=== PATIENT | female | born 1965 | race Caucasian/White ===

== ENCOUNTER 2022-05-26 19:23 | Emergency (ER) | payer BC, SELFPAY ==
[2022-05-26 19:40] VITALS: BP 131/88; PULSE 106; RESP 18; TEMP 36.2; O2SAT 98
--- NOTE | 2022-05-26 19:55 | ED.URI ---
HPI - URI/Sore Throat General Chief Complaint: Upper Respiratory Infection Stated Complaint: Cough,Congestion Time Seen by Provider: 05/26/22 19:24 Source: patient and family ( ) Mode of arrival: ambulatory Limitations: no limitations History of Present Illness HPI Narrative: 57-year-old female presents to [facility] with complaints of productive cough, postnasal drip and runny nose for the past 10 days. Patient takes Maite daily. Patient also has been taking [id number] Mucinex, Delsym and using the Neti pot with minimal relief. Patient is nonsmoker. Patient denies sick contacts. Patient reports that they recently moved to the area and does not have a current PCP. Patient denies shortness of breath, wheezing, fever, body aches, chills, nausea, vomiting or diarrhea MD elicited complaint: cough and rhinorrhea Onset (ago): day(s) (10) Severity: mild Able to tolerate fluids by mouth: Yes Treatments prior to arrival: cold medicine Related Data Home Medications Medication Instructions Recorded Confirmed docusate sodium 50 mg capsule 50 mg PO DAILY 05/26/22 05/26/22 gabapentin 300 mg capsule 300 mg PO BID 05/26/22 05/26/22 guaifenesin 600 mg tablet, 600 mg PO DAILY 05/26/22 05/26/22 extended release 12 hr (Mucinex) milnacipran 12.5 mg tablet 12.5 mg PO DAILY 05/26/22 05/26/22 (Savella) Allergies Allergy/AdvReac Type Severity Reaction Status Date / Time azithromycin Allergy Unknown Verified 05/26/22 19:47 Penicillins Allergy Unknown Verified 05/26/22 19:47 Chocolate Allergy Mild HIVES Uncoded 05/26/22 19:34 Review of Systems Constitutional: Constitutional: Denies chills, Denies fatigue, Denies fever(s) and Denies weakness ENT: Denies dizziness and Denies epistaxis Comments: Runny nose, postnasal drip Cardiovascular: Cardiovascular: Denies chest pain Respiratory: Respiratory: Reports cough, Denies dyspnea and Denies wheezing Gastrointestinal: Gastrointestinal: Denies abdominal pain, Denies diarrhea, Denies nausea and Denies vomiting Integumentary/Breasts: Skin/Breast: Denies rash Neurologic: Denies vertigo, Denies dizziness and Denies syncope [facility] Past Medical History Medical History (Updated 05/26/22 @ 20:00 by Emmanuelle Luis APRN) Fibromyalgia Comments At time of signature, I agree with nursing past medical, surgical, social and family history. There is no relevant family history pertinent to the presenting complaint. Exam Const: General: healthy appearing Nutritional Appearance: well nourished Orientation/consciousness: patient oriented x3 Limitations: no limitations HENMT: Head: normal to inspection Ears: external ears normal and TM's normal bilaterally Face/Nose/Sinus: Normal external nose present Mouth: Yes lip normal and Yes moist mucous membranes Teeth and gingiva: dentition normal Throat: uvula midline Other: Mild erythema noted to posterior pharynx, mild nasal congestion noted. There is no active nasal discharge noted Eyes: Conjunctivae: conjunctivae normal Neck: Neck: normal visual inspection Chest: Chest palpation & inspection: normal inspection of the chest Resp: Effort & Inspection: normal respiratory effort, not labored and no retractions Auscultation: clear to auscultation bilaterally, no crackles, no rales, no rhonchi and no wheezes Cardio: Rate: regular rate Rhythm: regular rhythm Heart sounds: no murmurs Skin: General skin exam: normal color Rashes: no rashes Wounds: no wounds Neuro: General: patient oriented x3 Speech: normal speech Gait exam (Neuro): Normal gait present Psych: Mental Status: mental status grossly normal Affect: normal affect Attitude: cooperative Course Course Level of Care: Express Care Visit Vital Signs Vital signs: Vital Signs Temperature 36.2 C L 05/26/22 19:40 Pulse Rate 106 H 05/26/22 19:40 Respiratory Rate 18 05/26/22 19:40 Blood Pressure 131/88 05/26/22 19:40 Pulse Oximetry 98 05/08
== END 2022-05-26 20:03 | disposition home or self-care (01) ==
PROVIDERS: Emergency Provider Nurse Practitioner Family
DX: J06.9 Acute upper respiratory infection, unspecified (principal); M79.7 Fibromyalgia
CPT/HCPCS: 99213; G0463

== ENCOUNTER 2024-02-29 10:18 | Emergency (ER) | payer BC, SELFPAY ==
[2024-02-29 10:44] VITALS: BP 111/73; PULSE 91; RESP 18; TEMP 36.6; O2SAT 100
--- NOTE | 2024-02-29 11:25 | ED.URI ---
HPI - URI/Sore Throat General Chief Complaint: Upper Respiratory Infection Stated Complaint: ?sinus infection Source: patient and family Mode of arrival: ambulatory Limitations: no limitations History of Present Illness HPI Narrative: 5-year-old female presents to [facility] with complaints of sinus pressure, headache and right ear pain for the past 2 days. Patient reports that she has been using nasal rinses, taking Maite, Mucinex and Flonase with minimal relief. Patient denies sick contacts. Patient denies recent travel. Patient denies fever, body aches, chills, nausea vomiting or diarrhea. Patient reports that she completed a 5 day course of clindamycin per her dentist as she had a tooth pulled and has since started with vaginal itching and is asking for a prescription to treat a yeast infection as she has a history of yeast infection after antibiotic use. MD elicited complaint: rhinorrhea, nasal congestion and sinus pain Onset (ago): day(s) (2) Exacerbating factors: nothing Relieving factors: nothing Treatments prior to arrival: cold medicine Related Data Home Medications Medication Instructions Recorded Confirmed gabapentin 300 mg capsule 300 mg PO BID 05/26/22 02/29/24 guaifenesin 600 mg tablet, 600 mg PO DAILY 05/26/22 02/29/24 extended release 12 hr (Mucinex) milnacipran 12.5 mg tablet 12.5 mg PO DAILY 05/26/22 02/29/24 (Savella) cholecalciferol (vitamin D3) 25 25 mcg PO DAILY 02/29/24 02/29/24 mcg (1,000 unit) tablet (Vitamin D3) fezolinetant 45 mg tablet (Veozah) 45 mg PO DAILY 02/29/24 02/29/24 Allergies Allergy/AdvReac Type Severity Reaction Status Date / Time azithromycin AdvReac Mild Hives Verified 02/29/24 10:45 Penicillins AdvReac Mild Hives Verified 02/29/24 10:45 Chocolate AdvReac Mild HIVES Uncoded 02/29/24 10:45 Review of Systems Constitutional: Constitutional: Denies chills, Denies fatigue, Denies fever(s) and Denies weakness ENT: Denies vertigo, Denies dizziness, Denies epistaxis, Reports nasal congestion and Denies sore throat Comments: Right ear pain Respiratory: Respiratory: Denies cough, Denies dyspnea and Denies wheezing Gastrointestinal: Gastrointestinal: Denies diarrhea, Denies nausea and Denies vomiting Genitourinary: Genitourinary: Denies abnormal vaginal bleeding, Denies hematuria, Denies nocturia, Denies genital lesions and Denies dysuria Comments: Vaginal itching Integumentary/Breasts: Skin/Breast: Denies erythema and Denies rash Neurologic: Denies syncope and Denies headache(s) PMFSH Past Medical History Medical History Fibromyalgia Comments At time of signature, I agree with nursing past medical, surgical, social and family history. There is no relevant family history pertinent to the presenting complaint. Exam Const: General: healthy appearing and no acute distress Nutritional Appearance: well nourished Orientation/consciousness: patient oriented x3 Limitations: no limitations HENMT: Head: normal to inspection Ears: external ears normal, EAC's normal and TM abnormal wth effusion serous on the right and erythematous on the right Face and sinus: sinus tenderness frontal Mouth: Yes lip normal and Yes moist mucous membranes Throat: posterior oropharynx normal and uvula midline Other: Moderate nasal congestion noted Eyes: Conjunctivae: conjunctivae normal Neck: Neck: normal visual inspection Resp: Effort & Inspection: normal respiratory effort and not labored Auscultation: clear to auscultation bilaterally, no crackles, no rales, no rhonchi and no wheezes Cardio: Rate: regular rate Rhythm: regular rhythm Heart sounds: no murmurs : Other: Vaginal exam deferred Skin: General skin exam: normal color Rashes: no rashes Wounds: no wounds Neuro: General: patient oriented x3 Speech: normal speech Gait exam (Neuro): Normal gait present Extrem: General: normal
== END 2024-02-29 11:34 | disposition home or self-care (01) ==
PROVIDERS: Emergency Provider Nurse Practitioner Family
DX: H66.92 Otitis media, unspecified, left ear (principal); J01.10 Acute frontal sinusitis, unspecified; M79.7 Fibromyalgia
CPT/HCPCS: 99213; G0463

== ENCOUNTER 2024-05-04 17:49 | Emergency (ER) | payer BC, SELFPAY ==
[2024-05-04 18:00] VITALS: BP 135/81; PULSE 93; RESP 16; TEMP 36.4; O2SAT 100
--- NOTE | 2024-05-04 18:03 | ED_ITS ---
HPI - Ear Problem General Chief complaint: Ear Stated complaint: ear infection Time Seen by Provider: 05/04/24 18:06 Source: patient and RN notes reviewed Mode of arrival: ambulatory Limitations: no limitations History of Present Illness HPI Narrative: 59-year-old female presents concern for ear infection. She reports 1 week history of right-sided ear pain, nasal drainage, right throat pain. She reports some recent body aches. She had an ear infection the right ear 2 months ago. MD Complaint: ear pain Related Data Home Medications Medication Instructions Recorded Confirmed gabapentin 300 mg capsule 300 mg PO BID 05/26/22 05/04/24 guaifenesin 600 mg tablet, 600 mg PO DAILY 05/26/22 05/04/24 extended release 12 hr (Mucinex) milnacipran 12.5 mg tablet 12.5 mg PO DAILY 05/26/22 05/04/24 (Savella) cholecalciferol (vitamin D3) 25 25 mcg PO DAILY 02/29/24 05/04/24 mcg (1,000 unit) tablet (Vitamin D3) fezolinetant 45 mg tablet (Veozah) 45 mg PO DAILY 02/29/24 05/04/24 Lactobacillus 1 cap PO DAILY 05/04/24 05/04/24 acidophilus-Bifidobac.animalis 2.5 billion cell capsule (Daily Probiotic) cholecalciferol (vitamin D3) 25 25 mcg PO DAILY 05/04/24 05/04/24 mcg (1,000 unit) capsule docusate sodium 50 mg capsule 50 mg PO DAILY 05/04/24 05/04/24 fexofenadine 60 mg tablet (Maite 60 mg PO Q12H 05/04/24 05/04/24 Allergy) Allergies Allergy/AdvReac Type Severity Reaction Status Date / Time azithromycin AdvReac Mild Hives Verified 05/04/24 18:17 Penicillins AdvReac Mild Hives Verified 05/04/24 18:17 Chocolate AdvReac Mild HIVES Uncoded 05/04/24 18:17 Review of Systems Review of Systems: CONSTITUTIONAL: Denies malaise, chills, sweats, or fever. EYES: Denies visual changes, redness, or discharge. ENT: Reports rhinorrhea, and right-sided sore throat. Reports right ear pain CARDIOVASCULAR: Denies chest pain, palpitations, or edema. RESPIRATORY: Denies cough. Denies dyspnea. GASTROINTESTINAL: Denies abdominal pain, nausea, vomiting, diarrhea SKIN: Denies rash or itching. MUSCULOSKELETAL: Reports myalgia. NEUROLOGIC: Denies headache. All systems reviewed & are unremarkable except as noted in HPI and below PMFSH Past Medical History Medical History Fibromyalgia Comments At time of signature, agree with nursing past medical, surgical, social and family history. There is no relevant family history pertinent to the presenting complaint Exam Narrative: GENERAL: Well-appearing, well-nourished, and in no acute distress. HEAD: Normocephalic EYES: PERRLA, conjunctivae clear ENT: Nares clear. Mucous membranes moist. TM pearly drake with sharp light reflex bilaterally; no tragal tenderness. Oropharynx not erythematous without lesions. Tonsils not enlarged and without exudate, no drooling, no hoarseness, no trismus, uvula midline. NECK: Supple. No lymphadenopathy CHEST: Clear to auscultation, breath sounds equal. No wheezing, rhonchi, rales, or stridor. No respiratory distress, speaks in full sentences. HEART: Regular rate and rhythm. No murmur heard. SKIN: Warm, dry, no rash. NEURO: Alert and oriented x3. PSYCH: Normal mood and affect Course Course Emergency Course: Patient is aware of diagnosis, understands and agrees to treatment plan. Anticipatory guidance given. Patient agrees to follow-up as directed and is aware of reasons to seek care at the emergency department. Portions of this record may have been created with voice recognition software Level of Care: Express Care Visit Vital Signs Vital signs: Vital Signs Temperature 97.6 F 05/04/24 18:00 Pulse Rate 93 05/04/24 18:00 Respiratory Rate 16 05/04/24 18:00 Blood Pressure 135/81 05/04/24 18:00 Pulse Oximetry 100 05/04/24 18:00 Oxygen Delivery Room Air 05/04/24 18:00 Temperature 97.6 F 05/04/24 18:00 Pulse Rate 93 05/04/24 18:00 Respiratory Rate 16 05/04/24 18:00 Blood Pressure 135/81 05/04/24 18:00 Pulse Oximetry 100 05/04/24 18:00 Oxygen Delivery Room Air 05/04/24 18:00 Reviewed. Medical Decision Making MDM Narrative Medical decision making narrative: I evaluated this in the [facility]. History is obtained from patient who is an independent historian and physical exam was performed.? Available medical records were reviewed. ? Exam findings and relevant testing show no acute concerns or changes; patient is non-toxic appearing and is in no distress. Differential diagnosis considered: Mcgill virus, strep pharyngitis, allergic rhinitis, upper respiratory tract infection, sinusitis, rhinosinusitis, nasopharyngitis. viral pharyngitis, otitis media, otitis externa, otitis effusion, cerumen impaction, foreign body. Exam findings show no acute concerns or changes; patient is non-toxic appearing and is in no distress. Patient is appropriate for outpatient treatment and follow-up. ? Differential diagnosis and treatment plan were discussed with the patient. Patient agrees with discussion and after shared medical decision making agrees with plan of care. All questions were answered to the patient's satisfaction. Patient is appropriate for outpatient treatment and follow-up. Vital Signs Vital Signs: Vital Signs Temperature 97.6 F 05/04/24 18:00 Pulse Rate 93 05/04/24 18:00 Respiratory Rate 16 05/04/24 18:00 Blood Pressure 135/81 05/04/24 18:00 Pulse Oximetry 100 05/04/24 18:00 Oxygen Delivery Room Air 05/04/24 18:00 Temperature 97.6 F 05/04/24 18:00 Pulse Rate 93 05/04/24 18:00 Respiratory Rate 16 05/04/24 18:00 Blood Pressure 135/81 05/04/24 18:00 Pulse Oximetry 100 05/04/24 18:00 Oxygen Delivery Room Air 05/04/24 18:00 Critical Care Time Critical Care Time Critical Care Time: No Discharge Plan Discharge Clinical Impression: Ear ache Patient Disposition: Home, Self-Care Condition: Stable Instructions: Earache (ED) Additional Instructions: Your rapid strep swab was negative today at [facility]. A throat culture will be sent to the laboratory for further testing. If the test is positive, you will receive a phone call within 48 hours and an appropriate antibiotic will be initiated at that time. Take pseudoephedrine per package directions Recommend antihistamine such as Benadryl at night time and Zyrtec or Maite during the day until symptoms improve Flonase nasal spray, 2 sprays in each nostril once daily until symptoms improve Also, recommend symptomatic treatment includes: rest, fluids, and increase humidity of the air at home. Recommend ibuprofen and Acetaminophen as directed on the bottle to reduce fever, pain Please schedule a follow-up visit with your personal physician for further evaluation and treatment within 3-5days. If your symptoms persist, change or worsen significantly before you can contact your personal physician then please, without delay, go to the emergency department for further evaluation. Prescriptions: No Action cholecalciferol (vitamin D3) [Vitamin D3] 25 mcg (1,000 unit) tablet 25 mcg PO DAILY Veozah 45 mg tablet 45 mg PO DAILY fexofenadine [Maite Allergy] 60 mg Tablet 60 mg PO Q12H Colace 50 mg Capsule 50 mg PO DAILY cholecalciferol (vitamin D3) 25 mcg (1,000 unit) Capsule 25 mcg PO DAILY Daily Probiotic 2.5 billion cell Capsule 1 cap PO DAILY gabapentin 300 mg Capsule 300 mg PO BID Savella 12.5 mg Tablet 12.5 mg PO DAILY guaifenesin [Mucinex] 600 mg Tablet Extended Release 12hr 600 mg PO DAILY Follow-up/Referrals: UNKNOWN,DOCTOR [Primary Care Provider] - Time of Disposition: 18:44
[2024-05-04 18:43] LABS: EDSTREPNEGPOS1 Negative (Negative)
== END 2024-05-04 18:46 | disposition home or self-care (01) ==
PROVIDERS: Emergency Provider Nurse Practitioner
DX: H92.01 Otalgia, right ear (principal)
CPT/HCPCS: 87081; 87880; 99211; G0463